=== PATIENT | male | born 1995 | race African-American/Black ===

== ENCOUNTER 2018-12-26 06:21 | Emergency (ER) | payer OTHER ==
[~2018-12-26] VITALS: Ht 188 cm; Wt 104.5 kg
[2018-12-26] MEDS ORDERED: NAPR-837 PO (07:37)
[2018-12-26] MEDS ORDERED: NAPROXEN 250 MG TAB PO ONE (07:45)
[2018-12-26 08:09] VITALS: BP 134/76
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
== END 2018-12-26 08:35 | disposition home or self-care (01) ==
LOC: M ED 06:21
DX: S83.412A Sprain of medial collateral ligament of left knee, initial encounter (principal); V43.52XA Car driver injured in collision with other type car in traffic accident, initial encounter; Y92.410 Unspecified street and highway as the place of occurrence of the external cause; F17.200 Nicotine dependence, unspecified, uncomplicated